=== PATIENT | female | born 1945 | race Caucasian/White ===

== ENCOUNTER 2023-10-26 14:19 | Outpatient (REF) | payer OTHER, SELFPAY ==
[2023-10-26 18:12] LABS: Anion Gap 13 (12-20); Blood Urea Nitrogen 37 mg/dL (9-16); Carbon Dioxide 27 mmol/L (22-29); Chloride 106 mmol/L (96-108); Estimated Glomerular Filt Rate 53; Glucose Random 98 mg/dL (60-115); Potassium 4.2 mmol/L (3.3-5.1); Sodium 142 mmol/L (135-145)
[2023-10-26 18:29] LABS: TSH reflex Free T4 1.91 uIU/mL (0.32-4.0)
[2023-10-26 18:40] LABS: Folate 14.6 ng/mL (> or = 4.0); Vitamin B12 1141 pg/mL (200-900)
[2023-10-29 18:58] LABS: Methylmalonic Acid 163 nmol/L (87-318)
[2023-10-29 19:03] LABS: IgA 188 mg/dL (70-320); IgG 1054 mg/dL (600-1540); IgM 74 mg/dL (50-300)
== END 2023-10-26 14:20 | disposition home or self-care (01) ==
LOC: HO.CHCLDS 14:19
PROVIDERS: Visit Provider Family Medicine
DX: M62.830 Muscle spasm of back (principal)
CPT/HCPCS: 36415; 80048; 82607; 82746; 82784; 83921; 84443; 86334; 86335